=== PATIENT | male | born 1975 | race African-American/Black ===

== ENCOUNTER 2020-05-26 08:29 | Outpatient (REF) | payer OTHER, SELFPAY ==
[2020-05-26 09:18] LABS: MANUAL DIFF FLAG NO
[2020-05-26 09:20] LABS: Glucose Urine UA NEG (NEG); Leukocyte Esterase Urine NEG (NEG); Nitrite Urine NEG (NEG); Specific Gravity - Urine 1.025 (1.005-1.025); Urine Blood 1+ (NEG); Urine Ketones NEG (NEG); Urine Protein NEG (NEG-TRACE)
[2020-05-26 09:22] LABS: Appearance Urine CLEAR; Color Urine YELLOW
[2020-05-26 09:24] LABS: Basophils Percent Auto 0.1 % (0-2); Eosinophils Absolute Auto 0.4 X10*3/uL (0.0-0.4); Eosinophils Percent Auto 6.2 % (0-4); Hematocrit 48.3 % (42-52); Imm Gran Abs Auto 0.03 X10*3/uL (0.00-0.03); Imm Gran Pct Auto 0.4 % (0.0-0.4); Lymphocytes Percent Auto 42.9 % (20-40); Mean Corpuscular HGB Conc 31.1 g/dl (31.0-36.0); Mean Corpuscular Hemoglobin 25.7 pg (27.0-33.0); Mean Corpuscular Volume 82.7 fL (80-98); Monocytes Absolute Auto 0.6 X10*3/uL (0.1-1.2); Monocytes Percent Auto 8.7 % (2-11); Neutrophils Percent Auto 41.7 % (45-73); Platelet Count 240 X10*3/uL (160-400); Red Blood Count 5.84 X10*6/uL (4.60-5.80); Red Cell Distribution Width 14.6 % (11.0-16.0); White Blood Count 7.1 X10*3/uL (4.8-10.8)
[2020-05-26 09:27] LABS: Squamous Epithelial Cell Urine TRACE /LPF; UACC CULT YES
[2020-05-26 09:28] LABS: Mucus Urine 2+ /LPF
[2020-05-26 09:49] LABS: Alanine Aminotransferase 26 U/L (0-40); Albumin Level 4.2 g/dL (3.5-5.0); Alkaline Phosphatase 104 U/L (39-117); Anion Gap 11 (12-20); Aspartate Amino Transferase 23 U/L (5-37); Bilirubin Total 0.6 mg/dL (0.0-1.0); Blood Urea Nitrogen 17 mg/dL (9-16); Calcium 8.9 mg/dL (8.4-10.2); Carbon Dioxide 32 mmol/L (22-29); Chloride 103 mmol/L (96-108); Cholesterol 200 mg/dL; Estimated Glomerular Filt Rate > 60; Glucose Fasting 81 mg/dL (60-99); HDL Cholesterol 44 mg/dL; LDL Cholesterol Calculated 133 mg/dl; Potassium 4.4 mmol/L (3.3-5.1); Sodium 142 mmol/L (135-145); Total Protein 8.1 g/dL (6.5-8.0); Triglycerides 118 mg/dL
[2020-05-26 10:01] LABS: Prostate Specific Antigen Scr 0.26 ng/mL (<0.05-4.0)
== END 2020-05-26 08:30 | disposition home or self-care (01) ==
LOC: HO.LAB 08:29
PROVIDERS: PCP Internal Medicine; Visit Provider Internal Medicine
DX: Z00.00 Encounter for general adult medical examination without abnormal findings (principal); E55.9 Vitamin D deficiency, unspecified; E66.9 Obesity, unspecified; R03.0 Elevated blood-pressure reading, without diagnosis of hypertension
CPT/HCPCS: 36415; 80053; 80061; 81001; 84153; 84443; 85025; 87086

== ENCOUNTER 2023-08-06 15:00 | Outpatient (AMB) | payer OTHER, SELFPAY ==
[2023-08-06 15:07] VITALS: BP 130/72; PULSE 79; O2SAT 97; BMI 38.8
--- NOTE | 2023-08-06 15:07 | MHC.PC.OV ---
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 Required: No Allergies No Known Allergies Allergy (Verified 08/06/23 15:34) Medication List - Last Reconciled 08/06/23 by Gordon Rajan MD lisinopril 10 mg PO DAILY 30 days Tobacco use date assessed: 08/06/23 Dental Screening Dental Screen Date: 08/06/23 Did you have a dental visit in the last 12 months?: No Did you have a dental problem in the last 6 months where you did not have access to dental care?: No Was dental information given to patient?: Patient has dentist HPI Annual Exam - see comment HPI Details Patient comes in today for his annual physical examination - has not been back in a couple of years States that he currently feels okay although he has a couple of issues that he would like to have looked into States that 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[employer] and is 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 to get 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 done yearly and he recalls that everytime he has an EKG done over the past couple of years, he is told that he passed BUT he should still check with his PCP regarding his EKG He is not really sure what they meant and would like to have this evaluated further He denies any headaches or dizziness Denies any SOB or exertional chest pains although he would notice some soreness over his left anterior chest wall at times when he is working out and lifting weights and he is attributing it to just some muscle pains over his chest wall No nausea/vomiting, no abdominal pain but relates (+) bloating and heartburns at times - thinks that these are more due to what he is eating He has also noticed that his stools are sometimes soft and occasionally slightly loose but never watery and states that he has no more than 1 to 2 bowel movements a day and that they have been mostly regular He also reports experiencing urinary frequency lately but denies any nocturia - states that he wakes up at most only once a night to go to the bathroom He has also been experiencing problems with hemorrhoids at times and always just uses some OTC hemorrhoid cream as needed for symptomatic relief Lastly, adds that he has noticed that his right testicle seem to have slowly shrunk over the past few years - recalls that it was normal in size when he was younger States that he has never had a colonoscopy done in the past [facility] Medical History Allergic rhinitis Benign essential hypertension Obesity (BMI 30-39.9) Surgical History No significant past surgical history Family History Father Hypertension Mother Hypertension Social History (Updated 08/06/23 @ 15:54 by Gordon Rajan MD) Housing: House Alcohol intake: never Patient Tobacco Use Status: Never used Tobacco Second Hand Smoke Exposure: No Current occupational status: employed Current occupation: [employer]) Cognitive needs: No Hearing needs: No Vision needs: Yes Questionnaire PHQ-9 Over the last 2 weeks, how often have you been bothered by any of the following problems? 1. Little interest or pleasure in doing things: not at all 2. Feeling down, depressed, or hopeless: not at all 3. Trouble falling or staying asleep, or sleeping too much: not at all 4. Feeling tired or having little energy: not at all 5. Poor appetite or overeating: not at all 6. Feeling bad about yourself - or that you are a failure or have let yourself or your family down: not at all 7. Trouble concentrating on things, such as reading the newspaper or watching television: not at all 8. Moving or speaking so slowly that other people could have noticed. Or the opposite - being so fidgety or restless that you have been moving around a lot more than usual: not at all 9. Thoughts that you would be better off or of hurting yourself in some way: not at all Total score: 0 Depression Screening Interpretation: Negative Depression Screening Done: Yes 79707 - PHQ-9 Billing: Yes Source: Developed by Drs. Carlos Perez, Cara Kirk, Nilson Steven and colleagues, with an educational delphine from [employer]. Thrive Questionnaire Date Thrive assessed: 08/06/23 I am a: Patient What is your living situation today?: I have a steady place to live Within the past 12 months, did the food you bought not last and you didn't have the money to get more?: Never true Within the past 12 months, did you worry whether your food would run out before you got money to buy more?: Never true Do you have trouble paying for medicines?: No Do you have trouble getting transportation to medical appointments?: No Do you have trouble paying your heating and electricity bill?: No Do you have trouble taking care of your child, family member or friend?: No Do you have trouble with day-to-day activities such as bathing, preparing meals, shopping, managing finances, etc.?: No Are you currently unemployed and looking for a job?: No Are you interested in more education?: No Please select the resources that you would like help with: None Currently or been in a relationship where the following occur: no concerns reported THRIVE Score: 0 AUDIT C Alcohol Use Questionnaire (AUDIT-C) 1. How often do you have a drink containing alcohol?: Never 3. How often do you have six or more drinks on one occasion?: Never Total Score: 0 Score Reviewed/Action Taken: Yes JAYDEN-7 AMB Questionnaire JAYDEN-7 Date JAYDEN - 7 assessed: 08/06/23 Feeling nervous, anxious, or on edge: 0 = Not at all Not being able to stop or control worryin = Not at all Worrying too much about different things: 0 = Not at all Trouble relaxin = Not at all Being so restless that it is hard to sit still: 0 = Not at all Becoming easily annoyed or irritable: 0 = Not at all Feeling afraid as if something awful might happen: 0 = Not at all Total JAYDEN-7 score (0-4 normal; 5-9 mild; 10-14 moderate; 15-21 severe): 0 Source: Developed by Drs. Carlos Perez, Cara Kirk, Nilson Steven and colleagues, with an educational delphine from [employer]. JAYDEN-7 Assessment Billing JAYDEN-7 Assessment Tool: JAYDEN-7 Assessment 61731 Review of Systems Const Denies chills, Denies fatigue, Denies fever(s), Denies headache(s), Denies malaise and Denies weakness Eyes Denies blurry vision, Denies change in vision, Denies irritation and Denies itchy eyes ENT Denies dysphagia, Denies dizziness, Denies otalgia, Denies headache(s), Denies nasal congestion, Denies neck pain, Denies odynophagia and Denies sore throat Card Reports chest pain (on and off over the left anterior chest wall, usually when lifting weights), Denies chest pain with activity, Denies rapid heart rate, Denies irregular heart rhythm, Denies palpitations and Denies dyspnea Resp Denies chest congestion, Denies cough, Denies dyspnea and Denies wheezing GI Denies abdominal pain, Reports bloating (at times), Denies constipation, Denies dysphagia, Reports heartburn (at times), Denies diarrhea, Denies nausea, Denies odynophagia and Denies vomiting Reports as per HPI, Denies hematuria, Denies difficulty urinating, Denies dysuria, Denies nocturia, Reports urinary frequency and Denies urinary urgency Musc Denies back pain, Denies arthralgias, Denies joint swelling, Denies muscle weakness and Denies neck pain Skin/Breast Denies change in pigmentation, Denies lesions, Denies rash and Denies unusual bruising Neuro Denies dizziness, Denies headache(s), Denies paresthesias and Denies weakness Endo Denies fatigue and Denies palpitations Aller/Immun Denies itchy eyes and Denies wheezing Physical exam (Primary Care) Vital Signs: Last Vital Signs Pulse 79 08/06/23 15:07 BP 130/72 08/06/23 15:07 Pulse Ox 97 08/06/23 15:07 Oxygen Delivery Method Room Air 08/06/23 15:07 BMI result Body Mass Index 38.8 Tobacco/Smoking Status: Tobacco use Status Tobacco use date assessed 08/06/23 08/06/23 15:08 Patient Tobacco Use Status Never used Tobacco 08/06/23 15:54 PHQ-9: PHQ-9 Score PHQ-9: Total score 0 08/06/23 16:09 Depression Screening Interpretation: Negative Thrive Assessment: Date of Thrive Assessment Date Thrive assessed 08/06/23 08/06/23 15:08 Currently or been in a relationship where the following occur: no concerns reported Const General: no acute distress, alert and awake Orientation/consciousness: patient oriented x3 HENMT Head: Yes normocephalic and Yes atraumatic Ears: external ears normal, TM's normal bilaterally and EAC's normal General nose exam: No nasal discharge present Face and sinus: Yes normal facial exam and Yes sinuses nontender Teeth and gingiva: dentition normal Throat: Yes posterior oropharynx normal and Yes tonsils normal (no TP congestion) Eyes Eyelids: Yes eyelids normal Conjunctivae: conjunctivae normal Pupils: Equal, round and reactive pupils present EOM: EOMs intact bilaterally Neck Neck: Yes no lymphadenopathy and Yes supple Thyroid: Thyroid normal Resp Auscultation: clear to auscultation bilaterally, no rales and no wheezes Cardio Rate: regular rate Rhythm: regular rhythm Heart sounds: no murmurs GI Palpation (GI): Soft to palpation, nontender and No hepatosplenomegaly present Auscultation: normal bowel sounds General: Yes no CVA tenderness Penis: normal penis and circumcised Testes: atrophic testicle on the right and epididymal tenderness (mild, mostly over the epididymal duct area) Back/Spine/Pelvis Back: no CVA tenderness Thoracic/Lumbar Spine: thoracic and lumbar spine normal to inspection Skin Lesions: no lesions Rashes: no rashes Neuro General: patient oriented x3, moves all extremities, no focal motor deficits and CN's II-XI intact bilaterally Cranial nerves: Yes Equal, round and reactive pupils present Cognition (Neuro): normal cognition Gait exam (Neuro): Normal gait present Extrem General: Yes no clubbing, cyanosis or edema Assessment and Plan Assessment & Plan (1) Annual physical exam: Code(s): Z00.00 - Encounter for general adult medical examination without abnormal findings Plan: Check labs He is due for a screening colonoscopy and will be referred for this Per request, will also send him for a 12-lead EKG for further evaluation (2) Benign essential hypertension: Code(s): I10 - Essential (primary) hypertension Plan: Reinforced low sodium diet - goal is systolic BP of 120 mm or less Continue Lisinopril 10 mg QD Patient is reminded to continue monitoring his blood pressure regularly (3) Urinary frequency: Code(s): R35.0 - Frequency of micturition Plan: Will check his PSA for further evaluation - discussed that his symptoms may indicate prostate hypertrophy (4) Frequent loose stools: Code(s): R19.7 - Diarrhea, unspecified Qualifiers: Diarrhea type: unspecified type Qualified Code(s): R19.7 - Diarrhea, unspecified Plan: Per patient, is likely related to his diet Will include screening tests for celiac disease with his labs for further evaluation Patient is advised that with his current symptoms, he should undergo a screening colonoscopy for further evaluation (5) Hemorrhoids: Code(s): K64.9 - Unspecified hemorrhoids Qualifiers: Hemorrhoid type: unspecified Qualified Code(s): K64.9 - Unspecified hemorrhoids Plan: Continue OTC Preparation H PRN Advised that a screening colonoscopy will also help look into this issue further (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 - Atrophy of testis Plan: Patient's right testicle is significantly smaller in size (<75%) compared to the left testicle and there is some tenderness noted on palpation over the epididymal duct area Will send patient for right testicular US for further evaluation Will also check his serum testosterone level for further evaluation (7) Obesity (BMI 30-39.9): Code(s): E66.9 - Obesity, unspecified Plan: Reinforced diet/exercise as tolerated/lose weight (8) Colon cancer screening: Code(s): Z12.11 - Encounter for screening for malignant neoplasm of colon Plan: Will refer him to GI for screening colonoscopy Plan Follow up in 4 months Orders: Orders Testosterone, Free/Total 08/06/23 N50.0 - Atrophy of testis Complete Blood Count Auto Diff 08/06/23 D64.9 - Anemia, unspecified, Z00.00 - Encounter for general adult medical examination without abnormal findings Comprehensive M[place]y. Panel Fast 08/06/23 E78.00 - Pure hypercholesterolemia, unspecified, Z00.00 - Encounter for general adult medical examination without abnormal findings Lipid Panel 08/06/23 E78.00 - Pure hypercholesterolemia, unspecified, Z00.00 - Encounter for general adult medical examination without abnormal findings TSH reflex Free T4 08/06/23 E78.00 - Pure hypercholesterolemia, unspecified, Z00.00 - Encounter for general adult medical examination without abnormal findings UA CC w/rflx Micro + Cult 08/06/23 R30.0 - Dysuria, Z00.00 - Encounter for general adult medical examination without abnormal findings Vitamin D 25-OH Total 08/06/23 E55.9 - Vitamin D deficiency, unspecified, Z00.00 - Encounter for general adult medical examination without abnormal findings Prostate Specific Antigen 08/06/23 R35.0 - Frequency of micturition, Z00.00 - Encounter for general adult medical examination without abnormal findings US scrotum 08/06/23 N50.0 - Atrophy of testis ECG 12 lead EKG 08/06/23 I10 - Essential (primary) hypertension, R07.89 - Other chest pain, R94.31 - Abnormal electrocardiogram [ECG] [EKG] Celiac Disease Panel Today R19.7 - Diarrhea, unspecified Referrals Gastroenterology Referral Z12.11 - Encounter for screening for malignant neoplasm of colon Coding Level of Care Code Est Pt Prev Care 40-64y(03163) Diagnoses Annual physical exam Z00.00 Benign essential hypertension I10 Urinary frequency R35.0 Diarrhea, unspecified type R19.7 Diarrhea type: unspecified type Hemorrhoids, unspecified hemorrhoid type K64.9 Hemorrhoid type: unspecified Testicular atrophy N50.0 Obesity (BMI 30-39.9) E66.9 Colon cancer screening Z12.11 Additional Codes JAYDEN-7 Assessment Billing - JAYDEN-7 Assessment Tool: JAYDEN-7 Assessment 27114 ([id number])
== END 2023-08-06 15:55 | disposition home or self-care (01) ==
PROVIDERS: PCP Internal Medicine; Visit Provider Internal Medicine
DX: Z00.00 Encounter for general adult medical examination without abnormal findings (principal); I10 Essential (primary) hypertension; R35.0 Frequency of micturition; R19.7 Diarrhea, unspecified; K64.9 Unspecified hemorrhoids; N50.0 Atrophy of testis; E66.9 Obesity, unspecified
CPT/HCPCS: 99396

== ENCOUNTER 2023-08-13 08:06 | Outpatient (REF) | payer OTHER, SELFPAY ==
[2023-08-13 08:20] LABS: MANUAL DIFF FLAG NO
--- NOTE | 2023-08-13 08:23 | ECG_ITS ---
Test Reason : ESSEN. HTN Blood Pressure : / mmHG Vent. Rate : 077 BPM Atrial Rate : 077 BPM P-R Int : 160 ms QRS Dur : 100 ms QT Int : 382 ms P-R-T Axes : 053 -14 034 degrees QTc Int : 432 ms Normal sinus rhythm Minimal voltage criteria for LVH, may be normal variant ( R in aVL ) Borderline ECG No previous ECGs available Referred By: Gordon Rajan Electronically Signed By:RAINE MUÑOZ
[2023-08-13 08:35] LABS: Basophils Percent Auto 0.3 % (0-2); Eosinophils Absolute Auto 0.3 X10*3/uL (0.0-0.4); Eosinophils Percent Auto 5.4 % (0-4); Hematocrit 43.9 % (42.0-52.0); Hemoglobin 14.2 g/dl (14.0-18.0); Imm Gran Abs Auto 0.01 X10*3/uL (0.00-0.03); Imm Gran Pct Auto 0.2 % (0.0-0.4); Lymphocytes Absolute Auto 2.3 X10*3/uL (1.2-4.9); Lymphocytes Percent Auto 38.1 % (20-40); Mean Corpuscular HGB Conc 32.3 g/dl (31.0-36.0); Mean Corpuscular Hemoglobin 26.3 pg (27.0-33.0); Mean Corpuscular Volume 81.4 fL (80.0-98.0); Mean Platelet Volume 9.5 fL (9.4-12.4); Monocytes Absolute Auto 0.5 X10*3/uL (0.1-1.2); Monocytes Percent Auto 8.3 % (2-11); Neutrophils Absolute Auto 2.8 x10*3/uL (2.0-8.3); Neutrophils Percent Auto 47.7 % (45-73); Platelet Count 274 X10*3/uL (160-400); Red Blood Count 5.39 X10*6/uL (4.60-5.80); Red Cell Distribution Width 14.3 % (11.0-16.0); White Blood Count 5.9 X10*3/uL (4.8-10.8)
[2023-08-13 08:52] LABS: Appearance Urine Clear; Color Urine Yellow; Glucose Urine UA Negative (Negative); Leukocyte Esterase Urine Negative (Negative); Nitrite Urine Negative (Negative); PH 5.5 (5.0-9.0); Urine Blood Negative (Negative); Urine Ketones Negative (Negative); Urine Protein Negative (Neg-Trace)
[2023-08-13 09:23] LABS: Alanine Aminotransferase 19 U/L (0-40); Alkaline Phosphatase 102 U/L (39-117); Anion Gap 10 (12-20); Aspartate Amino Transferase 20 U/L (5-37); Bilirubin Total 0.3 mg/dL (0.0-1.0); Blood Urea Nitrogen 15 mg/dL (9-16); Calcium 8.9 mg/dL (8.4-10.2); Carbon Dioxide 29 mmol/L (22-29); Chloride 106 mmol/L (96-108); Cholesterol 210 mg/dL (<200); Estimated Glomerular Filt Rate > 60; Glucose Fasting 90 mg/dL (60-99); HDL Cholesterol 46 mg/dL (>40); LDL Cholesterol Calculated 140 mg/dL (<100); Sodium 141 mmol/L (135-145); Total Protein 7.7 g/dL (6.5-8.0); Triglycerides 122 mg/dL (<150)
[2023-08-13 09:40] LABS: TSH reflex Free T4 2.75 uIU/mL (0.32-4.0); Vitamin D 25-OH Total 16.5 ng/mL (>30)
[2023-08-13 09:41] LABS: Prostate Specific Antigen 0.23 ng/mL (<0.05-4.0)
[2023-08-17 04:53] LABS: Immunoglobulin A 246 mg/dL (47-310); Transglutaminase IgA <1.0 U/mL
== END 2023-08-13 08:07 | disposition home or self-care (01) ==
LOC: HO.LAB 08:06
PROVIDERS: PCP Internal Medicine; Visit Provider Internal Medicine
DX: Z00.00 Encounter for general adult medical examination without abnormal findings (principal); Z12.5 Encounter for screening for malignant neoplasm of prostate; R07.89 Other chest pain; E78.00 Pure hypercholesterolemia, unspecified; R30.0 Dysuria; D64.9 Anemia, unspecified; E55.9 Vitamin D deficiency, unspecified; R19.7 Diarrhea, unspecified; N50.0 Atrophy of testis; R35.0 Frequency of micturition; I10 Essential (primary) hypertension; R94.31 Abnormal electrocardiogram [ECG] [EKG]
CPT/HCPCS: 36415; 80053; 80061; 81003; 82306; 82784; 84153; 84402; 84403; 84443; 85025; 86364; 93005

== ENCOUNTER → 2023-08-13 08:23 | Outpatient (BNV) | payer OTHER, SELFPAY | PROVIDERS: PCP Internal Medicine; Visit Provider Internal Medicine | DX: I10 Essential (primary) hypertension (principal) | CPT/HCPCS: 93010 ==

== ENCOUNTER 2023-08-19 12:54 | Outpatient (REF) | payer OTHER, SELFPAY ==
--- NOTE | ~2023-08-19 | US_ITS ---
EXAMINATION: US SCROTUM CLINICAL INFORMATION: Atrophy of right testis. COMPARISON: None available. TECHNIQUE: A sonogram of the scrotum was performed assessing soliz-scale appearance and color Doppler flow. Spectral Doppler analysis of the arterial and venous flow were performed in the testes bilaterally. FINDINGS: RIGHT: Right testicle measures 3.2 x 1.7 x 2.0 cm, volume 5.6 mL. Parenchymal echotexture is homogeneous. No focal testicular parenchymal lesions are visualized. Spectral Doppler analysis of the arterial and venous flow is normal in the right testis. Right epididymal head contains a 0.7 x 0.4 x 0.6 cm cyst No right hydrocele or varicocele is seen. LEFT: Left testicle measures 3.8 x 2.1 x 2.7 cm, volume 11.0 mL. Parenchymal echotexture is homogeneous. No focal testicular parenchymal lesions are visualized. Spectral Doppler analysis of the arterial and venous flow is normal in the left testis. Left epididymal head is normal in size. No left hydrocele or varicocele is seen. Questionable omental fat hernia in the left side of the scrotal sac. US/US scrotum IMPRESSION: 1. Normal testicles. The right testicle is smaller than the left testicle, however, both demonstrate homogeneous parenchyma and normal vascular flow. 2. 0.7 cm right epididymal head cyst. 3. Question of fat hernia in the left side of the scrotal sac. If of clinical concern, CT scan of the pelvis could be obtained.
== END 2023-08-19 12:55 | disposition home or self-care (01) ==
LOC: HO.US 12:54
PROVIDERS: PCP Internal Medicine; Visit Provider Internal Medicine
DX: N50.0 Atrophy of testis (principal)
CPT/HCPCS: 76870

== ENCOUNTER 2023-11-04 09:02 | Outpatient (AMB) | payer OTHER, SELFPAY ==
--- NOTE | 2023-11-04 09:03 | A.OFFVIS_ITS ---
Vital Signs 11/04/23 09:05 Height 5 ft 7 in Weight 250 lb 0.067 oz BMI 39.2 BP 132/68 Blood Pressure Location Rt brachial Position Sitting Pulse 76 Pulse Source Pulse Oximeter Pulse Oximetry (%) 96 Oxygen Delivery Method Room Air Intake Visit Reasons: Colonoscopy Screening Intake Note: Atif presents in office today for a scheduled colo s/p scrn CC; Initial, routine colo s/p. Pt reports concerns regarding possible hemorrhoids requiring treatment. Pt reports onset of sx within the last 2 mos. Pt also reports occasional constipation. Pt also reports abdominal bloating but denies any pain. 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 male here today for pre colonoscopy screening.? Patient was sent to us by his PCP.? This is his first colonoscopy screening.? Patient denies any gastrointestinal symptoms in the past or at present.? Occasional blood after bowel movement, occasional constipation. Patient reports that he used to take stool softeners with help. Denies any personal or family history of gastrointestinal disease, colon polyps, or CRC.? Denies history of difficulty with sedation or anesthesia in the past.? Negative for history of sleep apnea.? Denies any history of cardiac, renal, pulmonary, or hepatic disease.?? No history of infectious? diseases like hepatitis A, B, C, HIV or tuberculosis.? 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[employer]) Cognitive needs: No Hearing needs: No Vision needs: Yes Review of Systems Const Denies weight gain and Denies weight loss ENT Reports no additional complaints, Denies dysphagia and Denies odynophagia Card Reports no additional complaints Resp Reports no additional complaints GI Denies abdominal pain, Denies belching, Denies melena, Denies bloating, Denies change in bowel habits, Reports constipation, Denies dysphagia, Denies excessive flatus, Denies dyspepsia, Denies heartburn, Denies diarrhea, Denies loose stools, Denies nausea, Denies odynophagia and Denies vomiting Reports no additional complaints Musc Reports no additional complaints Neuro Reports no additional complaints Psych Reports no additional complaints Endo Reports no additional complaints Physical Exam Vital Signs: Last Vital Signs Pulse 76 11/04/23 09:05 BP 132/68 11/04/23 09:05 Pulse Ox 96 11/04/23 09:05 Oxygen Delivery Method Room Air 11/04/23 09:05 BMI result Body Mass Index 39.2 Const General: healthy appearing and no acute distress Orientation/consciousness: patient oriented x3 Resp Effort & Inspection: normal respiratory effort, able to speak in complete sentences, no tracheal deviation and symmetric chest movement Auscultation: clear to auscultation bilaterally Cardio Rate: regular rate GI Inspection: Yes normal to inspection, No distended and Yes obesity Palpation (GI): Soft to palpation, not firm, nontender and No hepatosplenomegaly present Auscultation: normal bowel sounds General: Yes no CVA tenderness Back/Spine/Pelvis Back: no CVA tenderness Skin General skin exam: elasticity normal, turgor normal and dry skin Neuro General: patient oriented x3 Psych Appearance: grossly normal Mental Status: mental status grossly normal Assessment & Plan Assessment & Plan (1) Colon cancer screening: Code(s): Z12.11 - Encounter for screening for malignant neoplasm of colon Category: Medical Plan Patient denies any cardiac or respiratory symptoms.? Occasional constipation, uses stool softener on as needed basis. Denies any issues with anesthesia in the past.? Denies any history of sleep apnea.? No history infectious diseases in the past or present.? Not on any anticoagulation therapy.? No family or personal history of colon cancer or polyps.? Patient denies melena, unintentional weight loss or ribbon like stools.? Discussed at length the pre-procedure,? prep, diet & medications as well as what to expect prior, during and after the procedure.?? Stressed the importance of good bowel prep.? Recommended the use of Vaseline or Calmoseptine OTC & baby wipes with bowel movements to promote comfort.? ?Patient verbalizes understanding and agrees to plan of care.? He was given the opportunity to ask questions and all questions answered.? We will see him after the procedure.? Medications: New docusate sodium 100 mg PO BEDTIME 90 caps 3RF K59.00 - Constipation, unspecified polyethylene glycol 3350 (Miralax) As directed by gastroenterology department at [facility] 238 gra ms PO ONCE 238 grams 0RF Z12.11 - Encounter for screening for malignant neoplasm of colon bisacodyl (Dulcolax (bisacodyl)) take 4 tabs at noon the day before your colonoscopy 20 mg (4 x 5 mg) PO ONCE 1 day 4 tabs 0RF Z12.11 - Encounter for screening for malignant neoplasm of colon Coding Level of Care Code New Pt Level 3 (45891) Diagnoses Colon cancer screening Z12.11 Time Spent (min) 40 Comment 30 minutes spent with patient and additional 10 minutes spent reviewing his records
[2023-11-04 09:05] VITALS: BP 132/68; PULSE 76; O2SAT 96; BMI 39.2
== END 2023-11-04 09:47 | disposition home or self-care (01) ==
PROVIDERS: PCP Internal Medicine; Visit Provider Nurse Practitioner Family
DX: Z12.11 Encounter for screening for malignant neoplasm of colon (principal); Z01.818 Encounter for other preprocedural examination
CPT/HCPCS: 99203

== ENCOUNTER → 2023-11-04 09:02 | Outpatient (BNVA) | payer OTHER, SELFPAY | PROVIDERS: PCP Internal Medicine; Visit Provider Nurse Practitioner Family ==

== ENCOUNTER 2024-03-24 08:24 | Day surgery (SDC) | payer OTHER, SELFPAY ==
[2024-03-20 09:30] VITALS: BMI 39.2
--- NOTE | 2024-03-23 08:57 | HO.ANESPROP2 ---
Documented by User: Merline Bhatia NP 03/23/24 08:57 HPI - Anesthesia Eval Consult details Narrative: 48yo M for Colonoscopy [facility] Active Problems Active Problems: All Active Problems Testicular atrophy (Acute) Colon cancer screening (Acute) Hemorrhoids (Acute) Frequent loose stools (Acute) Urinary frequency (Acute) Annual physical exam (Acute) Allergic rhinitis (Acute) Benign essential hypertension (Acute) Dizziness (Acute) Obesity (BMI 30-39.9) (Acute) Tinea cruris (Acute) Past Medical History Medical History Allergic rhinitis Benign essential hypertension Obesity (BMI 30-39.9) Family History Family History Father Hypertension Mother Hypertension Surgical History Surgical History No significant past surgical history Social History Social History Housing: House Alcohol intake: never Patient Tobacco Use Status: Never used Tobacco Second Hand Smoke Exposure: No Use of substances other than those prescribed or required for medical reasons: No Have you been hit, kicked, punched, or otherwise hurt by someone within the past year? 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[employer]) Cognitive needs: No Hearing needs: No Vision needs: Yes Meds Allergies Allergy/AdvReac Type Severity Reaction Status Date / Time No Known Allergies Allergy Verified 11/04/23 09:04 Exam Height,Weight and Vital Signs: Height 5 ft 7 in Weight 113.398 kg Assessment and Plan Assessment Anesthesia Assessment: Chart Reviewed Documented by User: Sergio Holt MD 03/24/24 09:45 [facility] Past Medical History Medical History Allergic rhinitis Benign essential hypertension Obesity (BMI 30-39.9) Family History Family History Father Hypertension Mother Hypertension Family history of problems with anesthesia: No Surgical History Surgical History No significant past surgical history History of Problems with Anesthesia: No Social History Social History Housing: House Alcohol intake: never Patient Tobacco Use Status: Never used Tobacco Second Hand Smoke Exposure: No Use of substances other than those prescribed or required for medical reasons: No Have you been hit, kicked, punched, or otherwise hurt by someone within the past year? 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[employer]) Cognitive needs: No Hearing needs: No Vision needs: Yes Meds Allergies Allergy/AdvReac Type Severity Reaction Status Date / Time No Known Allergies Allergy Verified 11/04/23 09:04 Exam Airway Mallampati Class: III TM Dist: <=3cm Neck ROM: Full Loose/Missing/Broken Teeth: No Heart: ok Lungs: ok Assessment and Plan Assessment Anesthesia Assessment: Anesthesia Plan Discussed Final Anesthetic Review Family History of Problems with Anesthesia: No History of Problems with Anesthesia: No NPO: Yes ASA Class: III Final Preanesthetic Review: No Changes in Pt Med Stat, Meds/Allgs Chart Reviewed, Consent Obtained/Reviewed and Anes Risks/Benef Reviewed Patient Risk: Intermediate Procedure Risk: Low Anesthetic Plan Anesthetic Plan: MAC: and Agree w/ Assess. and Plan Disposition: Standard PACU
--- NOTE | 2024-03-24 08:52 | P.HPSUR_ITS ---
Pre-Procedural Eval Section A - 24 Hr Update-Section A only Date of Service: 03/24/24 Section B - Complete if H&P > 30 days Chief Complaint: Encounter for screening for malignant neoplasm of Details of Present Illness: Allergic rhinitis Benign essential hypertension Obesity (BMI 30-39.9) Surgical History No significant past surgical history Present Medications: see Short Stay Collaborative assessment Allergies: Allergies Allergy/AdvReac Type Severity Reaction Status Date / Time No Known Allergies Allergy Verified 11/04/23 09:04 Review of Systems Review of Systems Comment: Ten point ROS negative Exam Exam Comment: Gen appear: No acute distress HEENT: no icterus Chest: No overt resp distress Abd: soft, nontender, nondistended Psych: Stable affect, answering questions appropriately Neuro: A/Ox3 noted to move all extremities spontaneously Ext: no peripheral edema Plan Diagnosis/Plan: Unchanged I have reviewed the history and physical and performed a pertinent physical examination on my patient. No changes have occurred unless specified. Time Spent With Patient Time: Total time managing care of this patient today ____ minutes.
[2024-03-24 09:08] VITALS: BP 134/79; PULSE 76; RESP 16; TEMP 36.7; O2SAT 98; BMI 39.0
[2024-03-24] MEDS: Lactated Ringers 1,000 ML 100 ML IVCONT (09:20)
--- NOTE | 2024-03-24 10:20 | P.OPN-COLO_ITS ---
Colonoscopy Operative Note Operative Note Date of Service: 03/24/24 Narrative: Procedure: Colonoscopy Indication: Screening Endoscopist: Rena Hoover MD Anesthesia Provider: Sergio Holt MD Anesthesia type: MAC Instrument: Olympus [id number] Consent: Indication, risks vs benefits, and alternatives were discussed with the patient who gave written informed consent to proceed. EKG, pulse, pulse oximetry and blood pressure were monitored throughout the procedure. Please see anesthesia flowsheet. Procedure: The patient was brought to the procedure room and placed in the left lateral decubitus position. IV medications were administered by the anesthesia provider in attendance. A digital rectal exam was performed which was normal. A distal attachment cap was affixed to the tip of the colonoscope which was then inserted through the anus and advanced through the colon to the cecum at 80 cm. Appendiceal orifice and ileocecal valve were identified. Mucosa was carefully examined under high definition white light as the instrument was slowly withdrawn in a retrograde panoramic fashion. Retroflexion was performed in rectum. The procedure was somewhat difficult due to a tight turn in the sigmoid colon and required water immersion with a LLQ lift to proceed. There were no immediate obvious complications. The quality of the prep was BBPS: 2+3+2 = adequate Withdrawal time 8 minutes. Limitations: No limitations. Findings: Mucosa: Normal to cecum. Protruding lesions: * Large internal hemorrhoids without stigmata of recent bleeding. Impression: 1. Normal colon mucosa 2. Internal hemorrhoids Recommendations: - Repeat colonoscopy in 10 years for asymptomatic colorectal cancer screening.
[2024-03-24 10:25] VITALS: BP 105/68; PULSE 80; RESP 18; TEMP 36.2; O2SAT 96
[2024-03-24 10:40] VITALS: BP 125/90; PULSE 75; RESP 18; TEMP 36.7; O2SAT 96
== END 2024-03-24 11:14 | disposition home or self-care (01) ==
PROVIDERS: PCP Internal Medicine; Visit Provider Internal Medicine
PROC: 0DJD8ZZ Inspection of Lower Intestinal Tract, Via Natural or Artificial Opening Endoscopic (ICD-10-PCS; CPT 45378; principal; 2024-03-24 09:50)
DX: Z12.11 Encounter for screening for malignant neoplasm of colon (principal); K64.8 Other hemorrhoids; K59.00 Constipation, unspecified; I10 Essential (primary) hypertension; J30.9 Allergic rhinitis, unspecified; E66.9 Obesity, unspecified; Z68.39 Body mass index [BMI] 39.0-39.9, adult
CPT/HCPCS: 45378; J2003; J2704

== ENCOUNTER → 2024-03-24 08:24 | Outpatient (BNV) | payer OTHER, SELFPAY | PROVIDERS: PCP Internal Medicine; Visit Provider Internal Medicine | DX: Z12.11 Encounter for screening for malignant neoplasm of colon (principal); K64.8 Other hemorrhoids | CPT/HCPCS: 45378 ==

== ENCOUNTER 2024-06-05 14:45 | Outpatient (AMB) | payer OTHER, SELFPAY ==
[2024-06-05 15:00] VITALS: BP 126/80; PULSE 85; O2SAT 97; BMI 40.0
--- NOTE | 2024-06-05 15:00 | A.OFFPC_ITS ---
Vital Signs 06/05/24 15:00 Height 5 ft 7 in Weight 255 lb 2 oz BMI 40.0 BP 126/80 Blood Pressure Location Lt brachial Position Sitting Pulse 85 Pulse Source Pulse Oximeter Pulse Oximetry (%) 97 Oxygen Delivery Method Room Air Intake Visit Reasons: blood pressure Curriculum And Assessment Director Required: No Accompanied by: Self / Same As Patient Allergies lisinopril Adverse Reaction (Intermediate, Verified 06/05/24 15:39) recurrent cough Medication List - Last Reconciled 06/05/24 by Gordon Rajan MD cholecalciferol (vitamin D3) 25 mcg PO DAILY docusate sodium 100 mg PO BEDTIME lisinopril 10 mg PO DAILY 30 days Tobacco use date assessed: 06/05/24 Dental Screening Dental Screen Date: 06/05/24 Did you have a dental visit in the last 12 months?: Yes Did you have a dental problem in the last 6 months where you did not have access to dental care?: No Was dental information given to patient?: Patient has dentist HPI blood pressure HPI Details Patient comes in today for follow up of his blood pressure States that he has been on Lisinopril for a few months now and that his blood pressure has been doing well on Lisinopril but he recalls that he started experiencing a recurrent non-productive cough shortly after he was started on his BP med States that he at first thought it was just due to allergies so he did not think too much about it until someone mentioned to him recently that his medication may be causing his cough He is in today to see if his medication can be changed to help address his coughing issue Adds that he was diagnosed with pneumonia last week and was prescribed a 5 days course of Abx (likely Z-cholo), which he finished a couple of days ago - notes that he is feeling better with regards to his respiratory infection but would like to have us listen to his lungs to make sure he is okay States that he feels good overall He denies any headaches or dizziness Denies any chest pains, no SOB No nausea/vomiting, no abdominal pain No change in bowel habits noted [facility] Medical History Allergic rhinitis Benign essential hypertension Obesity (BMI 30-39.9) Surgical History No significant past surgical history Family History Father Hypertension Mother Hypertension Social History Housing: House Alcohol intake: never Patient Tobacco Use Status: Never used Tobacco Second Hand Smoke Exposure: No Current occupational status: employed 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 1. Little interest or pleasure in doing things: not at all 2. Feeling down, depressed, or hopeless: not at all 3. Trouble falling or staying asleep, or sleeping too much: not at all 4. Feeling tired or having little energy: not at all 5. Poor appetite or overeating: not at all 6. Feeling bad about yourself - or that you are a failure or have let yourself or your family down: not at all 7. Trouble concentrating on things, such as reading the newspaper or watching television: not at all 8. Moving or speaking so slowly that other people could have noticed. Or the opposite - being so fidgety or restless that you have been moving around a lot more than usual: not at all 9. Thoughts that you would be better off or of hurting yourself in some way: not at all Total score: 0 Depression Screening Interpretation: Negative Depression Screening Done: Yes 11435 - PHQ-9 Billing: Yes Source: Developed by Drs. Carlos Perez, Cara Kirk, Nilson Steven and colleagues, with an educational delphine from [employer]. Thrive Questionnaire Date Thrive assessed: 06/05/24 I am a: Patient What is your living situation today?: I have a steady place to live Within the past 12 months, did the food you bought not last and you didn't have the money to get more?: Never true Within the past 12 months, did you worry whether your food would run out before you got money to buy more?: Never true Do you have trouble paying for medicines?: No Do you have trouble getting transportation to medical appointments?: No Do you have trouble paying your heating and electricity bill?: No Do you have trouble taking care of your child, family member or friend?: No Do you have trouble with day-to-day activities such as bathing, preparing meals, shopping, managing finances, etc.?: No Are you currently unemployed and looking for a job?: No Are you interested in more education?: No Please select the resources that you would like help with: None Currently or been in a relationship where the following occur: No concerns reported THRIVE Score: 0 AUDIT C Alcohol Use Questionnaire (AUDIT-C) 1. How often do you have a drink containing alcohol?: Never 3. How often do you have six or more drinks on one occasion?: Never Total Score: 0 Score Reviewed/Action Taken: Yes JAYDEN-7 AMB Questionnaire JAYDEN-7 Date JAYDEN - 7 assessed: 06/05/24 Feeling nervous, anxious, or on edge: 0 = Not at all Not being able to stop or control worryin = Not at all Worrying too much about different things: 0 = Not at all Trouble relaxin = Not at all Being so restless that it is hard to sit still: 0 = Not at all Becoming easily annoyed or irritable: 0 = Not at all Feeling afraid as if something awful might happen: 0 = Not at all Total JAYDEN-7 score (0-4 normal; 5-9 mild; 10-14 moderate; 15-21 severe): 0 Source: Developed by Drs. Carlos Perez, Cara Kirk, Nilson Steven and colleagues, with an educational delphine from [employer]. JAYDEN-7 Assessment Billing JAYDEN-7 Assessment Tool: JAYDEN-7 Assessment 77278 Review of Systems Const Denies chills, Denies fatigue, Denies fever(s) and Denies headache(s) ENT Denies dysphagia, Denies dizziness, Denies otalgia, Denies headache(s), Denies neck pain, Denies odynophagia and Denies sore throat Card Reports chest pain (on and off over the left anterior chest wall, usually when lifting weights), Denies chest pain with activity, Denies irregular heart rhythm, Denies palpitations and Denies dyspnea Resp Denies chest congestion, Reports cough (recurrent, non-productive) and Denies dyspnea GI Denies abdominal pain, Denies constipation, Denies dysphagia, Denies diarrhea, Denies nausea, Denies odynophagia and Denies vomiting Denies difficulty urinating, Denies dysuria, Denies nocturia and Denies urinary frequency Musc Denies back pain, Denies arthralgias and Denies neck pain Skin/Breast Denies rash Neuro Denies dizziness, Denies headache(s) and Denies paresthesias Endo Denies fatigue and Denies palpitations Physical exam (Primary Care) Vital Signs: Last Vital Signs Pulse 85 06/05/24 15:00 BP 126/80 06/05/24 15:00 Pulse Ox 97 06/05/24 15:00 Oxygen Delivery Method Room Air 06/05/24 15:00 BMI result Body Mass Index 40.0 Tobacco/Smoking Status: Tobacco use Status Tobacco use date assessed 06/05/24 06/05/24 15:02 Patient Tobacco Use Status Never used Tobacco 06/05/24 15:02 PHQ-9: PHQ-9 Score PHQ-9: Total score 0 06/05/24 15:02 Depression Screening Interpretation: Negative Thrive Assessment: Date of Thrive Assessment Date Thrive assessed 06/05/24 06/05/24 15:02 Currently or been in a relationship where the following occur: No concerns reported Const General: no acute distress and alert HENMT Throat: Yes posterior oropharynx normal and Yes tonsils normal (no TP congestion) Neck Neck: Yes supple and No lymphadenopathy Thyroid: Thyroid normal Resp Auscultation: clear to auscultation bilaterally, no crackles, no rales and no wheezes Cardio Rate: regular rate Rhythm: regular rhythm Heart sounds: no murmurs GI Palpation (GI): Soft to palpation and nontender Auscultation: normal bowel sounds General: Yes no CVA tenderness Back/Spine/Pelvis Back: no CVA tenderness Thoracic/Lumbar Spine: No lumbar spinal tenderness Skin Rashes: no rashes Extrem General: Yes no clubbing, cyanosis or edema Coding Level of Care Code Est Pt Level 3 (80906) Diagnoses Benign essential hypertension I10 Recurrent nonproductive cough R05.8 Pneumonia J18.9 Pneumonia type: due to unspecified organism Lung location: unspecified part of lung Additional Codes JAYDEN-7 Assessment Billing - JAYDEN-7 Assessment Tool: JAYDEN-7 Assessment 83299 ([id number]) PHQ-9 - 11925 - PHQ-9 Billing: Yes ([id number]) Assessment & Plan Assessment & Plan (1) Benign essential hypertension: Code(s): I10 - Essential (primary) hypertension Category: Medical Plan: Reinforced low sodium diet - goal is systolic BP of 120 mm or less His blood pressure appears to be well-controlled on his current Rx (Lisinopril 10 mg QD) but he now realizes that it is causing him to have a recurrent cough ever since he was started on the Rx Will try switching him over to Losartan 50 mg QD; will D/C Lisinopril 10 mg He is advised that it may take a few days before his cough clears up completely once he stops taking his Lisinopril He is reminded to continue checking his blood pressure regularly (2) Recurrent nonproductive cough: Code(s): R05.8 - Other specified cough Category: Medical Plan: This is likely a side effect of his Lisinopril but may also be a residual effect of his recent pneumonia Nonetheless, have advised patient that it may take a few days for this to completely clear up once he stops taking his Lisinopril (3) Pneumonia: Code(s): J18.9 - Pneumonia, unspecified organism Category: Medical Qualifiers: Pneumonia type: due to unspecified organism Lung location: unspecified part of lung Plan: Resolving - S/P Tx with Abx (likely Azithromycin) Have reassured patient that his lungs sound clear on auscultation bilaterally on exam today Plan Follow up as scheduled in September 2024 Medications: New losartan 50 mg PO DAILY 90 days 90 tabs 1RF Discontinued lisinopril Discontinued Reason: Doctor's Order 10 mg PO DAILY 30 days 90 tabs 0RF I10 - Essential (primary) hypertension
== END 2024-06-05 15:42 | disposition home or self-care (01) ==
PROVIDERS: PCP Internal Medicine; Visit Provider Internal Medicine
DX: I10 Essential (primary) hypertension (principal); R05.8 Other specified cough; J18.9 Pneumonia, unspecified organism

== ENCOUNTER → 2024-06-05 14:45 | Outpatient (BNVA) | payer OTHER, SELFPAY | PROVIDERS: PCP Internal Medicine; Visit Provider Internal Medicine | DX: I10 Essential (primary) hypertension (principal); R05.8 Other specified cough; J18.9 Pneumonia, unspecified organism; Z79.899 Other long term (current) drug therapy | CPT/HCPCS: 96127 ==

== ENCOUNTER 2025-01-04 10:59 | Outpatient (AMB) | payer OTHER, SELFPAY ==
[2025-01-04 11:03] VITALS: BP 122/86; PULSE 91; O2SAT 96; BMI 40.9
--- NOTE | 2025-01-04 11:03 | MHC.PC.OV ---
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 Accompanied by: Self / Same As Patient Allergies lisinopril Adverse Reaction (Intermediate, Verified 01/04/25 11:24) recurrent cough Medication List - Last Reconciled 01/04/25 by Gordon Rajan MD cholecalciferol (vitamin D3) 25 mcg PO DAILY docusate sodium 100 mg PO BEDTIME losartan 50 mg PO DAILY 90 days Tobacco use date assessed: 01/04/25 Dental Screening Dental Screen Date: 01/04/25 Did you have a dental visit in the last 12 months?: Yes Did you have a dental problem in the last 6 months where you did not have access to dental care?: No Was dental information given to patient?: Patient has dentist HPI blood pressure med HPI Details Patient comes in today for his follow up visit States that he feels okay except for his hemorrhoids, which he states have been bothering him (pain and occasional bleeding) more than usual lately He denies any headaches or dizziness Denies any chest pains, no SOB No nausea/vomiting, no abdominal pain No change in bowel habits noted Would like to have his topical betamethasone valerate Rx refilled - states that he has been using this on and off for years and has not had it refilled in a while but his Rx just ran out a few weeks ago He has no follow up labs done recently [facility] Medical History (Updated 01/13/25 @ 10:23 by Gordon Rajan MD) Vitamin D deficiency Morbid obesity with BMI of 40.0-44.9, adult Allergic rhinitis Benign essential hypertension Obesity (BMI 30-39.9) Surgical History (Updated 01/04/25 @ 11:22 by Gordon Rajan MD) History of colonoscopy Family History Father Hypertension Mother Hypertension Social History Housing: House Alcohol intake: never Patient Tobacco Use Status: Never used Tobacco e-Cigarette/Vaping Use: Never Used Second Hand Smoke Exposure: No service: No Current occupational status: employed 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 1. Little interest or pleasure in doing things: not at all 2. Feeling down, depressed, or hopeless: not at all 3. Trouble falling or staying asleep, or sleeping too much: not at all 4. Feeling tired or having little energy: not at all 5. Poor appetite or overeating: not at all 6. Feeling bad about yourself - or that you are a failure or have let yourself or your family down: not at all 7. Trouble concentrating on things, such as reading the newspaper or watching television: not at all 8. Moving or speaking so slowly that other people could have noticed. Or the opposite - being so fidgety or restless that you have been moving around a lot more than usual: not at all 9. Thoughts that you would be better off or of hurting yourself in some way: not at all Total score: 0 Depression Screening Interpretation: Negative Depression Screening Done: Yes 54548 - PHQ-9 Billing: Yes Source: Developed by Drs. Carlos Perez, Cara Kirk, Nilson Steven and colleagues, with an educational delphine from [employer]. Thrive Questionnaire Date Thrive assessed: 01/02/25 I am a: Patient What is your living situation today?: I have a steady place to live Within the past 12 months, did the food you bought not last and you didn't have the money to get more?: Never true Within the past 12 months, did you worry whether your food would run out before you got money to buy more?: Never true Do you have trouble paying for medicines?: No Do you have trouble getting transportation to medical appointments?: No Do you have trouble paying your heating and electricity bill?: No Do you have trouble taking care of your child, family member or friend?: No Do you have trouble with day-to-day activities such as bathing, preparing meals, shopping, managing finances, etc.?: No Are you currently unemployed and looking for a job?: No Are you interested in more education?: No Please select the resources that you would like help with: None Currently or been in a relationship where the following occur: No concerns reported THRIVE Score: 0 AUDIT C Alcohol Use Questionnaire (AUDIT-C) 1. How often do you have a drink containing alcohol?: Never 3. How often do you have six or more drinks on one occasion?: Never Total Score: 0 Score Reviewed/Action Taken: Yes JAYDEN-7 AMB Questionnaire JAYDEN-7 Date JAYDEN - 7 assessed: 06/05/24 Feeling nervous, anxious, or on edge: 0 = Not at all Not being able to stop or control worryin = Not at all Worrying too much about different things: 0 = Not at all Trouble relaxin = Not at all Being so restless that it is hard to sit still: 0 = Not at all Becoming easily annoyed or irritable: 0 = Not at all Feeling afraid as if something awful might happen: 0 = Not at all Total JAYDEN-7 score (0-4 normal; 5-9 mild; 10-14 moderate; 15-21 severe): 0 Source: Developed by Drs. Carlos Perez, Cara Kirk, Nilson Steven and colleagues, with an educational delphine from [employer]. Review of Systems Const Denies chills, Denies fatigue, Denies fever(s) and Denies headache(s) ENT Denies dysphagia, Denies dizziness, Denies otalgia, Denies headache(s), Denies neck pain, Denies odynophagia and Denies sore throat Card Denies chest pain, Denies palpitations and Denies dyspnea Resp Denies chest congestion, Denies cough and Denies dyspnea GI Denies abdominal pain, Reports hematochezia (occasionally - due to (+) hemorrhoids), Denies constipation, Denies dysphagia, Denies heartburn, Denies diarrhea, Denies nausea, Denies odynophagia and Denies vomiting Denies difficulty urinating, Denies dysuria, Denies nocturia and Denies urinary frequency Musc Denies back pain and Denies neck pain Skin/Breast Denies rash Neuro Denies dizziness and Denies headache(s) Endo Denies fatigue and Denies palpitations Physical exam (Primary Care) Vital Signs: Last Vital Signs Pulse 91 10//25 11:03 BP 122/86 01/04/25 11:03 Pulse Ox 96 01/04/25 11:03 Oxygen Delivery Method Room Air 01/04/25 11:03 BMI result Body Mass Index 40.9 Tobacco/Smoking Status: Tobacco use Status Tobacco use date assessed 01/04/25 01/04/25 11:11 Patient Tobacco Use Status Never used Tobacco 01/04/25 11:11 e-Cigarette/Vaping Use Never Used 01/04/25 11:11 PHQ-9: PHQ-9 Score PHQ-9: Total score 0 01/04/25 11:23 Depression Screening Interpretation: Negative Thrive Assessment: Date of Thrive Assessment Date Thrive assessed 01/02/25 01/04/25 11:11 Currently or been in a relationship where the following occur: No concerns reported Const General: no acute distress and alert HENMT Ears: TM's normal bilaterally and EAC's normal Throat: Yes posterior oropharynx normal and Yes tonsils normal (no TP congestion) Neck Neck: Yes supple and No lymphadenopathy Thyroid: Thyroid normal Resp Auscultation: clear to auscultation bilaterally, no rales and no wheezes Cardio Rate: regular rate Rhythm: regular rhythm Heart sounds: no murmurs GI Palpation (GI): Soft to palpation and nontender Auscultation: normal bowel sounds General: Yes no CVA tenderness Back/Spine/Pelvis Back: no CVA tenderness Thoracic/Lumbar Spine: No lumbar spinal tenderness Skin Rashes: no rashes Extrem General: Yes no clubbing, cyanosis or edema Coding Level of Care Code Est Pt Level 4 (50831) Diagnoses Benign essential hypertension I10 Vitamin D deficiency E55.9 Hemorrhoids, unspecified hemorrhoid type K64.9 Hemorrhoid type: unspecified Rash R21 Morbid obesity with BMI of 40.0-44.9, adult Additional Codes PHQ-9 - 68086 - PHQ-9 Billing: Yes ([id number]) Assessment & Plan Assessment & Plan (1) Benign essential hypertension: Code(s): I10 - Essential (primary) hypertension Category: Medical Plan: Reinforced low sodium diet - goal is systolic BP of 120 mm or less He was switched over from Lisinopril to Losartan 50 mg QD earlier this year due to side effects (cough) from Lisinopril 10 mg Continue current Rx and he is again reminded to continue checking his blood pressure regularly (2) Vitamin D deficiency: Code(s): E55.9 - Vitamin D deficiency, unspecified Category: Medical Plan: Continue Vitamin D3 1000 units QD (3) Hemorrhoids: Code(s): K64.9 - Unspecified hemorrhoids Category: Medical Qualifiers: Hemorrhoid type: unspecified Qualified Code(s): K64.9 - Unspecified hemorrhoids Plan: Will refer him to surgery for management / possible surgery for his hemorrhoids (4) Rash: Code(s): R21 - Rash and other nonspecific skin eruption Category: Medical Plan: Continue Betamethasone valerate 0.1% BID PRN - Rx refilled, per request (5) Morbid obesity with BMI of 40.0-44.9, adult: Category: Medical Plan: Reinforced diet/exercise as tolerated/lose weight Per request, will refer him to weight management at [facility] [place] for help in his attempts at weight loss Plan To return in 6 months for his next annual physical examination Patient is reminded to get his follow up labs done JUST BEFORE he returns for his physical exam in 6 months' time Orders: Orders Comprehensive [place]. Panel Fast 6 Months E78.00 - Pure hypercholesterolemia, unspecified, Z00.00 - Encounter for general adult medical examination without abnormal findings Vitamin D 25-OH Total 6 Months E55.9 - Vitamin D deficiency, unspecified, Z00.00 - Encounter for general adult medical examination without abnormal findings Complete Blood Count Auto Diff 6 Months D64.9 - Anemia, unspecified, Z00.00 - Encounter for general adult medical examination without abnormal findings Lipid Panel 6 Months E78.00 - Pure hypercholesterolemia, unspecified, Z00.00 - Encounter for general adult medical examination without abnormal findings TSH reflex Free T4 6 Months E78.00 - Pure hypercholesterolemia, unspecified, Z00.00 - Encounter for general adult medical examination without abnormal findings UA CC w/rflx Micro + Cult 6 Months R30.0 - Dysuria, Z00.00 - Encounter for general adult medical examination without abnormal findings Referrals General Surgery Referral K64.9 - Unspecified hemorrhoids Medical Weight Management Referral E66.9 - Obesity, unspecified Medications: New betamethasone valerate 0.1% 1 appl topical BID PRN 45 grams 1RF skin irritation/rash
== END 2025-01-04 11:42 | disposition home or self-care (01) ==
LOC: HO.HMCH 11:00
PROVIDERS: PCP Internal Medicine; Visit Provider Internal Medicine
DX: I10 Essential (primary) hypertension (principal); E55.9 Vitamin D deficiency, unspecified; K64.9 Unspecified hemorrhoids; R21 Rash and other nonspecific skin eruption

== ENCOUNTER → 2025-01-04 10:59 | Outpatient (BNVA) | payer OTHER, SELFPAY | PROVIDERS: PCP Internal Medicine; Visit Provider Internal Medicine | DX: I10 Essential (primary) hypertension (principal); K64.9 Unspecified hemorrhoids; E55.9 Vitamin D deficiency, unspecified; R21 Rash and other nonspecific skin eruption; E66.01 Morbid (severe) obesity due to excess calories; Z68.41 Body mass index [BMI] 40.0-44.9, adult | CPT/HCPCS: 96127 ==

== ENCOUNTER 2025-02-15 11:23 | Outpatient (AMB) | payer OTHER, SELFPAY ==
--- NOTE | 2025-02-15 11:26 | MHC.OFFVIS ---
Vital Signs 02/15/25 11:30 Height 5 ft 7 in Weight 262 lb BMI 41.0 BP 145/74 H Blood Pressure Location Lt brachial Position Sitting Pulse 79 Intake Visit Reasons: hemorrhoids Intake Note: Patient is seen in office for evaluation and treatment of hemorrhoids. 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 The symptoms have been ongoing for approximately one year, characterized by pain and bleeding, particularly during bowel movements associated with constipation and straining. The patient notes bleeding on toilet paper and occasionally in the toilet bowl with significant straining. The patient also reports a sensation of abdominal gas and feeling backed up. The patient had a colonoscopy last year, which was normal. There is no history of hemorrhoid surgery or other anal procedures. The patient was once treated at an urgent care with a cream for these symptoms but is no longer using it. 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[employer]) Current occupational exposures/hazards: No Cognitive needs: No Hearing needs: No Vision needs: Yes Review of Systems Const All systems reviewed & are unremarkable except as noted in HPI and below Denies chills, Denies fever(s), Denies headache(s), Denies poor appetite and Denies weakness ENT Denies headache(s) Card Denies chest pain, Denies irregular heart rhythm, Denies palpitations and Denies dyspnea Resp Denies cough, Denies excessive phlegm production and Denies dyspnea GI Denies abdominal pain, Denies bloating, Denies change in bowel habits, Denies constipation, Denies heartburn, Denies diarrhea, Denies nausea and Denies vomiting Denies difficulty urinating and Denies urinary frequency Musc Denies back pain, Denies muscle weakness and Denies numbness Skin/Breast Denies changing lesions and Denies unusual bruising Neuro Denies headache(s), Denies numbness, Denies paresthesias and Denies weakness Psych Denies anxiety and Denies depression Endo Denies palpitations Alex/Lymph Denies lymphadenopathy Physical Exam Vital Signs: Last Vital Signs Pulse 79 02/15/25 11:30 BP 145/74 H 02/15/25 11:30 BMI result Body Mass Index 41.0 Const General: cooperative and no acute distress Nutritional Appearance: well nourished Orientation/consciousness: patient oriented x3 Limitations: no limitations HEENT Head: Yes normocephalic and Yes atraumatic Ears: hearing grossly normal bilaterally Resp Effort & Inspection: normal respiratory effort, no audible wheezes, no cough and no respiratory distress Cardio Jugular venous distension: no JVD GI Inspection: Yes normal to inspection Palpation (GI): Soft to palpation Rectal Exam - Male: Yes abnormal sphincter tone (Hypertrophic internal sphincter), No heme positive stool, No External hemorrhoid(s) present, No Internal hemorrhoid(s) present and Yes tenderness (Tenderness posterior anal wall suggestive of anal fissure) Skin Other: Warm, dry, no rash Neuro General: patient oriented x3 Extrem General: Yes no clubbing, cyanosis or edema Assessment & Plan Assessment & Plan (1) [id number]: Code(s): K60.30 - Anal fistula, unspecified Category: Medical (2) Fissure in ano: Code(s): K60.2 - Anal fissure, unspecified Category: Medical Plan 49-year-old male patient presenting with complaints of painful bowel movements with bleeding, constipation and abdominal distention. Symptoms began approximately a year ago and seemed to be worsening in severity. On examination the patient is noted to have a very tight anal sphincter with tenderness in the posterior wall suggestive of an anal fissure. Because of the chronic nature of his symptoms I suggested an exam under anesthesia with possible lateral internal anal sphincterotomy. After discussion of the procedure, risks, and alternatives, he consents to the exam under anesthesia and possible lateral internal anal sphincterotomy. Coding Level of Care Code New Pt Level 4 (78595) Diagnoses [id number] K60.30 Fissure in ano K60.2
[2025-02-15 11:30] VITALS: BP 145/74; PULSE 79; BMI 41.0
== END 2025-02-15 11:43 | disposition home or self-care (01) ==
LOC: HO.HGS 11:24
PROVIDERS: PCP Internal Medicine; Visit Provider Surgery
DX: K60.30 Anal fistula, unspecified (principal); K60.2 Anal fissure, unspecified
CPT/HCPCS: 99204